=== PATIENT | female | born 1995 | race Caucasian/White ===

== ENCOUNTER → 2016-07-11 | Outpatient (CLI) | payer OTHER ==
[~2016-07-11] MED LIST: ANXIETY MEDICATION PO; ATARAX 25MG25 MG/TAB PO; CEFTIN500 MG PO; MULTI VITAMINS1 TAB PO; PROZAC40 MG PO; PYRIDIUM 100MG100 MG PO
== END ==
LOC: COL.RAD 15:43
DX: R10.11 Right upper quadrant pain (principal)